=== PATIENT | male | born 1950 | race Caucasian/White ===

== ENCOUNTER 2017-07-17 15:17 | Inpatient (IN) | payer OTHER, MEDICAID ==
[2017-07-17 16:10] LABS: ADD MAN DIFF? NO
[2017-07-17 16:13] LABS: BASOPHILS % 0.2 % (0.0-2.0); EOSINOPHILS % 0.2 % (0.0-7.0); HEMATOCRIT 42.2 % (42.0-52.0); HEMOGLOBIN 14.6 g/dl (14.0-18.0); LYMPHOCYTES # 2.8 10^3/ul (0.8-2.9); LYMPHOCYTES % 21.5 % (15.0-51.0); MEAN CORPUSCULAR HEMOGLOBIN 29.7 pg (29.0-33.0); MEAN CORPUSCULAR HGB CONC 34.6 g/dl (32.0-37.0); MEAN CORPUSCULAR VOLUME 85.8 fl (82.0-101.0); MEAN PLATELET VOLUME 10.8 fl (7.4-10.4); MONOCYTE # 1.3 10^3/ul (0.3-0.9); MONOCYTES % 10.1 % (0.0-11.0); NEUTROPHILS % 67.8 % (39.0-77.0); PLATELET COUNT 246 10^3/UL (140-415); RED BLOOD COUNT 4.92 10^6/ul (4.70-6.10); RED CELL DISTRIBUTION WIDTH 12.8 % (11.5-14.5)
[2017-07-17 16:13] LABS: WHITE BLOOD COUNT 13.2 10^3/ul (4.8-10.8)
[2017-07-17 16:36] LABS: ANION GAP 13 (8-16); BLOOD UREA NITROGEN 18 mg/dl (7-20); CALCIUM 9.4 mg/dl (8.4-10.2); CARBON DIOXIDE 25 mmol/L (21-31); CHLORIDE 103 mmol/L (97-110); CREATININE 0.99 mg/dl (0.61-1.24); GLUCOSE 256 mg/dl (70-220); SODIUM 137 mmol/L (135-144)
[2017-07-17] MEDS ORDERED: FENTAnyl 50 MCG/ML VIAL (17:31)
[2017-07-17] MEDS ORDERED: MIDAZOLAM 1 MG/ML 2 ML INJ (17:31)
[2017-07-17] MEDS ORDERED: IODIXANOL LOCM 100 ML BTL ×2 (17:32→20:06)
[2017-07-17] MEDS ORDERED: LIDOCAINE 1% (MDV) 20 ML INJ (17:32)
[2017-07-17] MEDS ORDERED: NITROGLYCERIN (IC) 100 MCG/ML INJ (17:32)
[2017-07-17] MEDS: SOD CHLORIDE 0.9% 1,000 ML IV ×2 (17:47→22:39)
[2017-07-17] MEDS: ASPIRIN 81 MG TAB PO (17:53)
[2017-07-17] MEDS: HEPARIN 1000 UNITS/ML 10 ML INJ IV (17:53)
[2017-07-17] MEDS ORDERED: TICAGRELOR 90 MG TABLET (19:13)
[2017-07-17] MEDS ORDERED: VERAPAMIL 5 MG INJ (19:37)
[2017-07-17] MEDS ORDERED: BIVALIRUDIN 250MG /NS 50 ML 100 ML IVPB (19:55)
[2017-07-17] MEDS ORDERED: IOHEXOL 350MG/ML 50 ML BTL (20:06)
[2017-07-17] MEDS ORDERED: ONDANSETRON 4 MG INJ IV (20:30)
[2017-07-17] MEDS: BIVALIRUDIN 250 MG in SOD CHLORIDE 0.9% 500 ML IV (20:30)
[2017-07-17] MEDS ORDERED: ACETAMINOPHEN 325 MG TAB PO (20:30)
[2017-07-17] MEDS ORDERED: OXYCODONE/ACETAMINOPHEN (5/325) TAB PO ×2 (20:30)
[2017-07-17] MEDS: TICAGRELOR 90 MG TABLET PO ×3 (21:00→23:35)
[2017-07-17] MEDS: HYPOGLYCEMIA PROTOCOL when Glucose is <70 mg/dL or symptomatic <90 mg/dL. XX (21:00)
[2017-07-17] MEDS: Discontinue current oral sulfonylureas (glyburide, glipizide, and/or glimepiride) prior to XX (21:00)
[2017-07-17] MEDS: INSULIN ASPART [NOVOLOG] 3 ML PEN SC (21:00)
[2017-07-17] MEDS ORDERED: DEXTROSE 50% 50 ML SYRINGE IV ×2 (21:30)
[2017-07-17] MEDS ORDERED: GLUCOSE GEL 15 GRAM TUBE PO ×2 (21:30)
[2017-07-17] MEDS ORDERED: GLUCAGON 1 MG INJ IM (21:30)
[2017-07-17] MEDS ORDERED: GLUCOSE GEL 15 GRAM TUBE BUCCAL (21:30)
[2017-07-17 22:24] LABS: CREATINE KINASE 296 IU/L (23-200)
[2017-07-17] MEDS: morphine 2 MG INJ IV (22:25)
[2017-07-17] MEDS: LEVALBUTEROL (NEB) 0.31 MG/3 ML AMP HHN (22:30)
[2017-07-17 22:37] LABS: CK INDEX 2.7
[2017-07-17 22:42] LABS: CK-MB 7.98 ng/ml (0.0-2.4)
[2017-07-17] MEDS ORDERED: morphine 2 MG INJ IV (23:00)
[2017-07-17] MEDS: LORAZEPAM 2 MG INJ IV (23:01)
[2017-07-17 23:08] LABS: HEMOGLOBIN A1C 10.2 % (0-5.9)
[2017-07-17] MEDS: ATORVASTATIN 80 MG TAB PO (23:22)
[2017-07-17] MEDS: FAMOTIDINE 20 MG TAB PO (23:22)
[2017-07-17] MEDS: DOCUSATE SODIUM 100 MG CAP PO (23:23)
[2017-07-18] MEDS ORDERED: ATROPINE 1 MG/10 ML SYRINGE (00:41)
[2017-07-18 01:14] LABS: AADO2 Arterial 34.6 mmHg (7.0-24.0); Arterial Base Excess -1.1 mmol/L (-3.0-3); Arterial Blood Gas Oxygen Sat 95.3 mmHG (95.0-98.0); Arterial COHb 0.9 % (0.0-3.0); Arterial Fraction of Oxyhgb 94.2 % (93.0-99.0); Arterial HCO3 21.7 mmol/L (22.0-26.0); Arterial MetHb 0.3 % (0.0-1.5); Arterial Total Hemglobin 13.9 g/dl (12.0-18.0); Blood Gas IEPAP 15/5
[2017-07-18 01:31] LABS: MODE ROOM AIR; Site A-Line
[2017-07-18] MEDS: ACCU-CHEK XX (01:45)
[2017-07-18 05:48] LABS: ADD MAN DIFF? NO
[2017-07-18 05:57] LABS: WHITE BLOOD COUNT 13.2 10^3/ul (4.8-10.8)
[2017-07-18 05:57] LABS: BASOPHILS % 0.2 % (0.0-2.0); EOSINOPHILS % 0.2 % (0.0-7.0); HEMATOCRIT 38.8 % (42.0-52.0); HEMOGLOBIN 13.1 g/dl (14.0-18.0); LYMPHOCYTES # 2.1 10^3/ul (0.8-2.9); LYMPHOCYTES % 15.6 % (15.0-51.0); MEAN CORPUSCULAR HEMOGLOBIN 29.6 pg (29.0-33.0); MEAN CORPUSCULAR HGB CONC 33.8 g/dl (32.0-37.0); MEAN CORPUSCULAR VOLUME 87.6 fl (82.0-101.0); MEAN PLATELET VOLUME 10.3 fl (7.4-10.4); MONOCYTE # 1.3 10^3/ul (0.3-0.9); MONOCYTES % 9.7 % (0.0-11.0); NEUTROPHIL # 9.8 10^3/ul (1.6-7.5); NEUTROPHILS % 74.1 % (39.0-77.0); PLATELET COUNT 238 10^3/UL (140-415); RED BLOOD COUNT 4.43 10^6/ul (4.70-6.10); RED CELL DISTRIBUTION WIDTH 12.9 % (11.5-14.5)
[2017-07-18 06:13] LABS: ALANINE AMINOTRANSFERASE 36 IU/L (13-69); ALBUMIN 3.5 g/dl (3.3-4.9); ALBUMIN/GLOBULIN RATIO 1.06; ALKALINE PHOSPHATASE 79 IU/L (42-121); ANION GAP 8 (8-16); ASPARTATE AMINO TRANSFERASE 56 IU/L (15-46); BILIRUBIN,INDIRECT 1.1 mg/dl (0-1.1); BILIRUBIN,TOTAL 1.1 mg/dl (0.2-1.3); BLOOD UREA NITROGEN 16 mg/dl (7-20); CALCIUM 8.7 mg/dl (8.4-10.2); CARBON DIOXIDE 27 mmol/L (21-31); CHLORIDE 107 mmol/L (97-110); CHOL/HDL RATIO 3.3 RATIO; CHOLESTEROL 151 mg/dl (100-200); GLUCOSE 122 mg/dl (70-220); HDL CHOLESTEROL 45 mg/dl (30-78); LDL CHOLESTEROL,CALCULATED 89 mg/dl; MAGNESIUM 1.9 mg/dl (1.7-2.5); POTASSIUM 3.8 mmol/L (3.5-5.1); SODIUM 138 mmol/L (135-144); TOTAL PROTEIN 6.8 g/dl (6.1-8.1); TRIGLYCERIDES 84 mg/dl (0-149)
[2017-07-18 06:17] LABS: CREATINE KINASE 257 IU/L (23-200)
[2017-07-18 06:22] LABS: B-TYPE NATRIURETIC PEPTIDE 853 PG/ML (0-125)
[2017-07-18 06:26] LABS: CK INDEX 2.7
[2017-07-18 06:27] LABS: CK-MB 7.04 ng/ml (0.0-2.4)
[2017-07-18 06:30] LABS: FREE T4 (FREE THYROXINE) 2.03 ng/dl (0.78-2.44)
[2017-07-18] MEDS: PANTOPRAZOLE (EC) 40 MG TAB PO (06:30)
[2017-07-18 06:51] LABS: THYROID STIMULATING HORMONE < 0.015 MIU/L (0.465-4.680)
[2017-07-18 07:54] LABS: CREATINE KINASE 255 IU/L (23-200)
[2017-07-18 08:05] LABS: CK INDEX 2.6
[2017-07-18 08:08] LABS: CK-MB 6.75 ng/ml (0.0-2.4)
[2017-07-18] MEDS: LISINOPRIL 5 MG TAB PO (09:00)
[2017-07-18] MEDS: FAMOTIDINE 20 MG TAB PO ×2 (09:04→21:11)
[2017-07-18] MEDS: DOCUSATE SODIUM 100 MG CAP PO ×2 (09:04→21:11)
[2017-07-18] MEDS: ASPIRIN (EC) 81 MG TAB PO (09:04)
[2017-07-18] MEDS: TICAGRELOR 90 MG TABLET PO ×2 (09:05→21:11)
[2017-07-18] MEDS: INSULIN ASPART [NOVOLOG] 3 ML PEN SC ×4 (09:06→21:00)
[2017-07-18] MEDS: ATORVASTATIN 80 MG TAB PO (21:11)
[2017-07-19] MEDS: ACCU-CHEK XX (02:00)
[2017-07-19 05:21] LABS: ADD MAN DIFF? NO
[2017-07-19] MEDS: PANTOPRAZOLE (EC) 40 MG TAB PO (05:45)
[2017-07-19 05:46] LABS: BASOPHILS % 0.3 % (0.0-2.0); EOSINOPHILS # 0.1 10^3/ul (0.0-0.5); EOSINOPHILS % 0.5 % (0.0-7.0); HEMATOCRIT 37.5 % (42.0-52.0); HEMOGLOBIN 12.8 g/dl (14.0-18.0); LYMPHOCYTES # 2.1 10^3/ul (0.8-2.9); MEAN CORPUSCULAR HEMOGLOBIN 29.9 pg (29.0-33.0); MEAN CORPUSCULAR HGB CONC 34.1 g/dl (32.0-37.0); MEAN CORPUSCULAR VOLUME 87.6 fl (82.0-101.0); MEAN PLATELET VOLUME 10.4 fl (7.4-10.4); MONOCYTE # 1.1 10^3/ul (0.3-0.9); MONOCYTES % 10.1 % (0.0-11.0); NEUTROPHIL # 7.2 10^3/ul (1.6-7.5); NEUTROPHILS % 68.8 % (39.0-77.0); PLATELET COUNT 221 10^3/UL (140-415); RED BLOOD COUNT 4.28 10^6/ul (4.70-6.10); RED CELL DISTRIBUTION WIDTH 12.7 % (11.5-14.5)
[2017-07-19 05:46] LABS: WHITE BLOOD COUNT 10.5 10^3/ul (4.8-10.8)
[2017-07-19 05:51] LABS: CREATINE KINASE 129 IU/L (23-200)
[2017-07-19 05:55] LABS: PHOSPHORUS 3.7 mg/dl (2.5-4.9)
[2017-07-19 05:58] LABS: ALANINE AMINOTRANSFERASE 31 IU/L (13-69); ALBUMIN 3.5 g/dl (3.3-4.9); ALBUMIN/GLOBULIN RATIO 1.02; ALKALINE PHOSPHATASE 80 IU/L (42-121); ANION GAP 10 (8-16); ASPARTATE AMINO TRANSFERASE 32 IU/L (15-46); BILIRUBIN,INDIRECT 0.8 mg/dl (0-1.1); BILIRUBIN,TOTAL 0.8 mg/dl (0.2-1.3); BLOOD UREA NITROGEN 16 mg/dl (7-20); CALCIUM 8.8 mg/dl (8.4-10.2); CARBON DIOXIDE 26 mmol/L (21-31); CHLORIDE 106 mmol/L (97-110); CREATININE 1.06 mg/dl (0.61-1.24); GLUCOSE 135 mg/dl (70-220); POTASSIUM 4.4 mmol/L (3.5-5.1); SODIUM 138 mmol/L (135-144); TOTAL PROTEIN 6.9 g/dl (6.1-8.1)
[2017-07-19 06:05] LABS: CK-MB 2.63 ng/ml (0.0-2.4)
[2017-07-19] MEDS: INSULIN ASPART [NOVOLOG] 3 ML PEN SC ×5 (08:25→20:59)
[2017-07-19 09:45] LABS: FREE T4 (FREE THYROXINE) 1.73 ng/dl (0.78-2.44)
[2017-07-19] MEDS: FAMOTIDINE 20 MG TAB PO ×2 (09:56→20:55)
[2017-07-19] MEDS: ASPIRIN (EC) 81 MG TAB PO (09:56)
[2017-07-19] MEDS: DOCUSATE SODIUM 100 MG CAP PO ×2 (09:57→20:53)
[2017-07-19] MEDS: TICAGRELOR 90 MG TABLET PO ×2 (10:01→20:57)
[2017-07-19 10:04] LABS: THYROID STIMULATING HORMONE < 0.015 MIU/L (0.465-4.680)
[2017-07-19] MEDS: LISINOPRIL 5 MG TAB PO (10:04)
[2017-07-19] MEDS: ATORVASTATIN 80 MG TAB PO (20:52)
[2017-07-19] MEDS: BENZONATATE 100 MG CAP PO (20:54)
[2017-07-20] MEDS: ACCU-CHEK XX (03:35)
[2017-07-20] MEDS: PANTOPRAZOLE (EC) 40 MG TAB PO (03:35)
[2017-07-20] MEDS ORDERED: MIDAZOLAM 1 MG/ML 2 ML INJ (07:56)
[2017-07-20] MEDS ORDERED: IOHEXOL 350MG/ML 50 ML BTL (07:56)
[2017-07-20] MEDS ORDERED: IODIXANOL LOCM 100 ML BTL (07:56)
[2017-07-20] MEDS ORDERED: BIVALIRUDIN 250MG /NS 50 ML 50 ML IVPB (07:56)
[2017-07-20] MEDS ORDERED: FENTAnyl 50 MCG/ML VIAL (07:56)
[2017-07-20] MEDS: INSULIN ASPART [NOVOLOG] 3 ML PEN SC ×4 (08:00→20:22)
[2017-07-20 08:15] LABS: ADD MAN DIFF? NO
[2017-07-20 08:20] LABS: BASOPHILS % 0.3 % (0.0-2.0); EOSINOPHILS # 0.1 10^3/ul (0.0-0.5); EOSINOPHILS % 0.7 % (0.0-7.0); HEMATOCRIT 38.7 % (42.0-52.0); HEMOGLOBIN 13.2 g/dl (14.0-18.0); LYMPHOCYTES # 1.9 10^3/ul (0.8-2.9); LYMPHOCYTES % 20.4 % (15.0-51.0); MEAN CORPUSCULAR HEMOGLOBIN 29.9 pg (29.0-33.0); MEAN CORPUSCULAR HGB CONC 34.1 g/dl (32.0-37.0); MEAN CORPUSCULAR VOLUME 87.6 fl (82.0-101.0); MEAN PLATELET VOLUME 10.5 fl (7.4-10.4); MONOCYTE # 0.9 10^3/ul (0.3-0.9); MONOCYTES % 9.6 % (0.0-11.0); NEUTROPHIL # 6.5 10^3/ul (1.6-7.5); NEUTROPHILS % 68.7 % (39.0-77.0); PLATELET COUNT 266 10^3/UL (140-415); RED BLOOD COUNT 4.42 10^6/ul (4.70-6.10); RED CELL DISTRIBUTION WIDTH 12.4 % (11.5-14.5)
[2017-07-20 08:20] LABS: WHITE BLOOD COUNT 9.4 10^3/ul (4.8-10.8)
[2017-07-20] MEDS ORDERED: NITROGLYCERIN (IC) 100 MCG/ML INJ (08:27)
[2017-07-20 08:39] LABS: INR 1.06; PROTIME 13.9 Sec (11.9-14.9); PT RATIO 1.1
[2017-07-20] MEDS ORDERED: ASPIRIN 325 MG TAB (08:42)
[2017-07-20] MEDS ORDERED: TICAGRELOR 90 MG TABLET (08:42)
[2017-07-20 08:45] LABS: CREATINE KINASE 93 IU/L (23-200)
[2017-07-20 08:46] LABS: MAGNESIUM 1.9 mg/dl (1.7-2.5)
[2017-07-20 08:46] LABS: PHOSPHORUS 4.1 mg/dl (2.5-4.9)
[2017-07-20 08:53] LABS: ALANINE AMINOTRANSFERASE 32 IU/L (13-69); ALBUMIN 3.8 g/dl (3.3-4.9); ALBUMIN/GLOBULIN RATIO 1.02; ALKALINE PHOSPHATASE 95 IU/L (42-121); ANION GAP 11 (8-16); ASPARTATE AMINO TRANSFERASE 24 IU/L (15-46); BILIRUBIN,INDIRECT 0.8 mg/dl (0-1.1); BILIRUBIN,TOTAL 0.8 mg/dl (0.2-1.3); BLOOD UREA NITROGEN 18 mg/dl (7-20); CALCIUM 8.9 mg/dl (8.4-10.2); CARBON DIOXIDE 27 mmol/L (21-31); CHLORIDE 104 mmol/L (97-110); CREATININE 1.05 mg/dl (0.61-1.24); GLUCOSE 164 mg/dl (70-220); POTASSIUM 3.9 mmol/L (3.5-5.1); SODIUM 138 mmol/L (135-144); TOTAL PROTEIN 7.5 g/dl (6.1-8.1)
[2017-07-20 08:56] LABS: CK INDEX 1.2
[2017-07-20 08:57] LABS: CK-MB 1.11 ng/ml (0.0-2.4)
[2017-07-20] MEDS: TICAGRELOR 90 MG TABLET PO ×2 (09:00→20:22)
[2017-07-20] MEDS: BENZONATATE 100 MG CAP PO ×3 (09:00→20:16)
[2017-07-20] MEDS: ASPIRIN (EC) 81 MG TAB PO (09:00)
[2017-07-20] MEDS: SOD CHLORIDE 0.9% 1,000 ML IV (09:38)
[2017-07-20] MEDS: DOCUSATE SODIUM 100 MG CAP PO ×2 (09:46→20:22)
[2017-07-20] MEDS: FAMOTIDINE 20 MG TAB PO ×2 (09:47→20:15)
[2017-07-20] MEDS: LISINOPRIL 5 MG TAB PO (09:47)
[2017-07-20] MEDS ORDERED: morphine LIQ (10 MG/5 ML) CUP PO (15:00)
[2017-07-20] MEDS: LINAGLIPTIN 5 MG TABLET PO (16:24)
[2017-07-20] MEDS ORDERED: metFORMIN 500 MG TAB PO (17:35)
[2017-07-20] MEDS: ATORVASTATIN 80 MG TAB PO (20:16)
[2017-07-21] MEDS: ACCU-CHEK XX (02:00)
[2017-07-21] MEDS: PANTOPRAZOLE (EC) 40 MG TAB PO (06:09)
[2017-07-21 06:50] LABS: ADD MAN DIFF? NO
[2017-07-21 07:07] LABS: BASOPHILS % 0.3 % (0.0-2.0); EOSINOPHILS # 0.1 10^3/ul (0.0-0.5); EOSINOPHILS % 0.8 % (0.0-7.0); HEMATOCRIT 37.9 % (42.0-52.0); HEMOGLOBIN 12.8 g/dl (14.0-18.0); LYMPHOCYTES % 20.4 % (15.0-51.0); MEAN CORPUSCULAR HEMOGLOBIN 29.6 pg (29.0-33.0); MEAN CORPUSCULAR HGB CONC 33.8 g/dl (32.0-37.0); MEAN CORPUSCULAR VOLUME 87.5 fl (82.0-101.0); MONOCYTE # 0.8 10^3/ul (0.3-0.9); MONOCYTES % 8.4 % (0.0-11.0); NEUTROPHIL # 6.8 10^3/ul (1.6-7.5); NEUTROPHILS % 69.7 % (39.0-77.0); PLATELET COUNT 300 10^3/UL (140-415); RED BLOOD COUNT 4.33 10^6/ul (4.70-6.10); RED CELL DISTRIBUTION WIDTH 12.1 % (11.5-14.5)
[2017-07-21 07:07] LABS: WHITE BLOOD COUNT 9.8 10^3/ul (4.8-10.8)
[2017-07-21 07:36] LABS: MAGNESIUM 1.9 mg/dl (1.7-2.5)
[2017-07-21 07:49] LABS: ANION GAP 12 (8-16); BLOOD UREA NITROGEN 15 mg/dl (7-20); CALCIUM 8.7 mg/dl (8.4-10.2); CARBON DIOXIDE 26 mmol/L (21-31); CHLORIDE 104 mmol/L (97-110); CREATINE KINASE 95 IU/L (23-200); CREATININE 1.01 mg/dl (0.61-1.24); GLUCOSE 159 mg/dl (70-220); POTASSIUM 3.9 mmol/L (3.5-5.1); SODIUM 138 mmol/L (135-144)
[2017-07-21 07:53] LABS: CK INDEX 0.9
[2017-07-21] MEDS: INSULIN ASPART [NOVOLOG] 3 ML PEN SC ×3 (07:55→13:46)
[2017-07-21 08:07] LABS: CK-MB 0.85 ng/ml (0.0-2.4)
[2017-07-21] MEDS: DOCUSATE SODIUM 100 MG CAP PO (08:26)
[2017-07-21] MEDS: ASPIRIN (EC) 81 MG TAB PO (08:27)
[2017-07-21] MEDS: LINAGLIPTIN 5 MG TABLET PO (08:27)
[2017-07-21] MEDS: FAMOTIDINE 20 MG TAB PO (08:27)
[2017-07-21] MEDS: LISINOPRIL 5 MG TAB PO (08:27)
[2017-07-21] MEDS: BENZONATATE 100 MG CAP PO ×2 (08:28→12:49)
[2017-07-21] MEDS: TICAGRELOR 90 MG TABLET PO (08:29)
[2017-07-22] MEDS ORDERED: metFORMIN 500 MG TAB PO (17:35)
[2017-07-24] MEDS ORDERED: LEVOTHYROXINE 150 MCG TAB PO (06:00)
== END 2017-07-21 17:56 | disposition home or self-care (01) | DRG 247 ==
LOC: TEL 07-21 04:25 → ICU 07-20 09:23 → E/R 15:17 → ICU 18:24 → TEL 07-18 20:00 → MS4 07-19 17:53 → ICU 07-18 20:05
PROC: 027034Z Dilation of Coronary Artery, One Artery with Drug-eluting Intraluminal Device, Percutaneous Approach (ICD-10-PCS; principal; 2017-07-17 18:49)
PROC: 02703ZZ Dilation of Coronary Artery, One Artery, Percutaneous Approach (ICD-10-PCS; 2017-07-17 18:49)
PROC: 027034Z Dilation of Coronary Artery, One Artery with Drug-eluting Intraluminal Device, Percutaneous Approach (ICD-10-PCS; 2017-07-17 18:49)
PROC: 02703ZZ Dilation of Coronary Artery, One Artery, Percutaneous Approach (ICD-10-PCS; 2017-07-17 18:49)
PROC: 4A023N7 Measurement of Cardiac Sampling and Pressure, Left Heart, Percutaneous Approach (ICD-10-PCS; 2017-07-17 18:49)
PROC: B211YZZ Fluoroscopy of Multiple Coronary Arteries using Other Contrast (ICD-10-PCS; 2017-07-17 18:49)
PROC: B211YZZ Fluoroscopy of Multiple Coronary Arteries using Other Contrast (ICD-10-PCS; 2017-07-17 18:49)
DX: I21.4 Non-ST elevation (NSTEMI) myocardial infarction (principal); E11.9 Type 2 diabetes mellitus without complications; I10 Essential (primary) hypertension; I25.10 Atherosclerotic heart disease of native coronary artery without angina pectoris; E78.5 Hyperlipidemia, unspecified; E03.9 Hypothyroidism, unspecified; D72.829 Elevated white blood cell count, unspecified; Z79.84 Long term (current) use of oral hypoglycemic drugs; Z79.82 Long term (current) use of aspirin
CPT/HCPCS: 36415; 36600; 71045; 73000; 80048; 80053; 80061; 82550; 82553; 82803; 82962; 83036; 83735; 83880; 84100; 84439; 84443; 84484; 85025; 85610; 87081; 93005; 93306; 93458; 94664; 96374; 96375; 99291-25

== ENCOUNTER 2017-07-31 04:19 | Inpatient (IN) | payer OTHER, MEDICAID ==
[2017-07-31] MEDS: ASPIRIN 325 MG TAB PO (04:52)
[2017-07-31 05:02] LABS: ADD MAN DIFF? NO
[2017-07-31] MEDS: SOD CHLORIDE 0.9% 1,000 ML IV ×2 (05:22→10:49)
[2017-07-31] MEDS: ONDANSETRON 4 MG INJ IV ×2 (05:23)
[2017-07-31 05:25] LABS: ANION GAP 17 (8-16); BLOOD UREA NITROGEN 18 mg/dl (7-20); CALCIUM 9.8 mg/dl (8.4-10.2); CARBON DIOXIDE 22 mmol/L (21-31); CHLORIDE 108 mmol/L (97-110); CREATININE 0.98 mg/dl (0.61-1.24); GLUCOSE 100 mg/dl (70-220); POTASSIUM 3.4 mmol/L (3.5-5.1); SODIUM 144 mmol/L (135-144)
[2017-07-31 05:32] LABS: BASOPHIL # 0.1 10^3/ul (0.0-0.1); BASOPHILS % 0.4 % (0.0-2.0); EOSINOPHILS # 0.2 10^3/ul (0.0-0.5); EOSINOPHILS % 1.4 % (0.0-7.0); HEMATOCRIT 41.9 % (42.0-52.0); HEMOGLOBIN 14.1 g/dl (14.0-18.0); LYMPHOCYTES # 3.5 10^3/ul (0.8-2.9); LYMPHOCYTES % 24.7 % (15.0-51.0); MEAN CORPUSCULAR HEMOGLOBIN 29.4 pg (29.0-33.0); MEAN CORPUSCULAR HGB CONC 33.7 g/dl (32.0-37.0); MEAN CORPUSCULAR VOLUME 87.5 fl (82.0-101.0); MEAN PLATELET VOLUME 9.9 fl (7.4-10.4); MONOCYTES % 7.3 % (0.0-11.0); NEUTROPHIL # 9.3 10^3/ul (1.6-7.5); NEUTROPHILS % 65.9 % (39.0-77.0); POSITIVE DIFF @See below; RED BLOOD COUNT 4.79 10^6/ul (4.70-6.10); RED CELL DISTRIBUTION WIDTH 12.3 % (11.5-14.5)
[2017-07-31] MEDS: LIDOCAINE/MYLANTA 40 ML BTL PO (05:32)
[2017-07-31 05:33] LABS: B-TYPE NATRIURETIC PEPTIDE 385 PG/ML (0-125)
[2017-07-31] MEDS: NITROGLYCERIN (SL) 0.4 MG TAB SL (05:35)
[2017-07-31] MEDS: morphine 4 MG/ML VIAL IV (05:36)
[2017-07-31 05:39] LABS: PLATELET COUNT 448 10^3/UL (140-415)
[2017-07-31 05:41] LABS: TROPONIN-I 0.199 ng/ml (0.000-0.120)
[2017-07-31] MEDS: POTASSIUM CHLORIDE (SR) 20 MEQ TAB PO (05:58)
[2017-07-31] MEDS: HYDROmorphONE 0.5 MG/0.5 ML SYG IV (07:01)
[2017-07-31 07:57] LABS: ALANINE AMINOTRANSFERASE 32 IU/L (13-69); ALBUMIN 4.3 g/dl (3.3-4.9); ALKALINE PHOSPHATASE 110 IU/L (42-121); ASPARTATE AMINO TRANSFERASE 26 IU/L (15-46); BILIRUBIN,INDIRECT 0.3 mg/dl (0-1.1); BILIRUBIN,TOTAL 0.3 mg/dl (0.2-1.3); LIPASE 118 U/L (23-300); TOTAL PROTEIN 8.4 g/dl (6.1-8.1)
[2017-07-31] MEDS ORDERED: ONDANSETRON 4 MG INJ IV (10:00)
[2017-07-31] MEDS ORDERED: ACETAMINOPHEN 325 MG TAB PO (10:00)
[2017-07-31] MEDS ORDERED: NACL 0.9% 3 ML SYG IV (10:00)
[2017-07-31] MEDS: HYDROCODONE/APAP (5/325) TAB PO ×2 (10:41→18:46)
[2017-07-31 10:44] LABS: TROPONIN-I 0.765 ng/ml (0.000-0.120)
[2017-07-31] MEDS ORDERED: GLUCOSE GEL 15 GRAM TUBE PO ×2 (11:00)
[2017-07-31] MEDS ORDERED: INSULIN ASPART [NOVOLOG] 3 ML PEN SC (11:00)
[2017-07-31] MEDS ORDERED: GLUCAGON 1 MG INJ IM (11:00)
[2017-07-31] MEDS ORDERED: GLUCOSE GEL 15 GRAM TUBE BUCCAL (11:00)
[2017-07-31] MEDS ORDERED: DEXTROSE 50% 50 ML SYRINGE IV ×2 (11:00)
[2017-07-31 11:45] LABS: FREE T4 (FREE THYROXINE) 1.72 ng/dl (0.78-2.44)
[2017-07-31 11:52] LABS: CREATINE KINASE 323 IU/L (23-200)
[2017-07-31] MEDS ORDERED: HEPARIN 1000 UNITS/ML 10 ML INJ IV (12:00)
[2017-07-31 12:04] LABS: CK INDEX 5.8
[2017-07-31 12:06] LABS: INR 1.03; PROTIME 13.6 Sec (11.9-14.9); PT RATIO 1.1
[2017-07-31 12:13] LABS: HEMOGLOBIN A1C 9.4 % (0-5.9)
[2017-07-31 12:17] LABS: ADD MAN DIFF? NO
[2017-07-31 12:19] LABS: WHITE BLOOD COUNT 11.8 10^3/ul (4.8-10.8)
[2017-07-31 12:19] LABS: BASOPHILS % 0.3 % (0.0-2.0); EOSINOPHILS # 0.1 10^3/ul (0.0-0.5); EOSINOPHILS % 0.4 % (0.0-7.0); HEMATOCRIT 38.3 % (42.0-52.0); HEMOGLOBIN 12.8 g/dl (14.0-18.0); LYMPHOCYTES % 17.1 % (15.0-51.0); MEAN CORPUSCULAR HEMOGLOBIN 29.8 pg (29.0-33.0); MEAN CORPUSCULAR HGB CONC 33.4 g/dl (32.0-37.0); MEAN CORPUSCULAR VOLUME 89.1 fl (82.0-101.0); MEAN PLATELET VOLUME 9.2 fl (7.4-10.4); MONOCYTE # 0.6 10^3/ul (0.3-0.9); MONOCYTES % 5.2 % (0.0-11.0); NEUTROPHIL # 9.1 10^3/ul (1.6-7.5); NEUTROPHILS % 76.7 % (39.0-77.0); PLATELET COUNT 459 10^3/UL (140-415); RED CELL DISTRIBUTION WIDTH 12.5 % (11.5-14.5)
[2017-07-31] MEDS: HEPARIN 1000 UNITS/ML 10 ML INJ IV (12:49)
[2017-07-31] MEDS: HEPARIN 25000 UNITS/250 ML 250 ML IV (12:58)
[2017-07-31] MEDS: Insulin NOVOLOG SS MILD Algorithm (NPO/TPN/ENTERAL FEEDS) SC ×3 (13:00→20:56)
[2017-07-31 19:51] LABS: CREATINE KINASE 926 IU/L (23-200)
[2017-07-31 19:52] LABS: PROTIME 13.3 Sec (11.9-14.9)
[2017-07-31 19:53] LABS: PARTIAL THROMBOPLASTIN TIME 68.4 Sec (25.0-35.0)
[2017-07-31 20:02] LABS: CK INDEX 6.1
[2017-07-31] MEDS: ATORVASTATIN 80 MG TAB PO (20:52)
[2017-07-31] MEDS: TICAGRELOR 90 MG TABLET PO (20:54)
[2017-07-31] MEDS: INSULIN GLARGINE [LANtus] 3 ML PEN SC (20:55)
[2017-08-01] MEDS: Insulin NOVOLOG SS MILD Algorithm (NPO/TPN/ENTERAL FEEDS) SC ×2 (01:00→05:00)
[2017-08-01] MEDS: SOD CHLORIDE 0.9% 1,000 ML IV ×2 (01:01→12:03)
[2017-08-01] MEDS: HYDROCODONE/APAP (5/325) TAB PO ×2 (01:01→06:46)
[2017-08-01 06:40] LABS: ADD MAN DIFF? NO
[2017-08-01 06:43] LABS: BASOPHILS % 0.3 % (0.0-2.0); EOSINOPHILS # 0.1 10^3/ul (0.0-0.5); EOSINOPHILS % 0.7 % (0.0-7.0); HEMATOCRIT 38.9 % (42.0-52.0); HEMOGLOBIN 13.1 g/dl (14.0-18.0); LYMPHOCYTES # 1.9 10^3/ul (0.8-2.9); MEAN CORPUSCULAR HEMOGLOBIN 29.6 pg (29.0-33.0); MEAN CORPUSCULAR HGB CONC 33.7 g/dl (32.0-37.0); MEAN PLATELET VOLUME 9.3 fl (7.4-10.4); MONOCYTES % 7.6 % (0.0-11.0); NEUTROPHIL # 9.8 10^3/ul (1.6-7.5); PLATELET COUNT 447 10^3/UL (140-415); RED BLOOD COUNT 4.42 10^6/ul (4.70-6.10); RED CELL DISTRIBUTION WIDTH 12.7 % (11.5-14.5)
[2017-08-01 06:43] LABS: WHITE BLOOD COUNT 12.9 10^3/ul (4.8-10.8)
[2017-08-01] MEDS: LEVOTHYROXINE 150 MCG TAB PO (06:45)
[2017-08-01 07:06] LABS: ALANINE AMINOTRANSFERASE 52 IU/L (13-69); ALBUMIN 3.7 g/dl (3.3-4.9); ALBUMIN/GLOBULIN RATIO 1.05; ALKALINE PHOSPHATASE 108 IU/L (42-121); ANION GAP 13 (8-16); ASPARTATE AMINO TRANSFERASE 180 IU/L (15-46); BILIRUBIN,INDIRECT 0.6 mg/dl (0-1.1); BILIRUBIN,TOTAL 0.6 mg/dl (0.2-1.3); BLOOD UREA NITROGEN 10 mg/dl (7-20); CALCIUM 8.9 mg/dl (8.4-10.2); CARBON DIOXIDE 26 mmol/L (21-31); CHLORIDE 106 mmol/L (97-110); CHOL/HDL RATIO 2.4 RATIO; CHOLESTEROL 114 mg/dl (100-200); CREATININE 0.92 mg/dl (0.61-1.24); GLUCOSE 126 mg/dl (70-220); HDL CHOLESTEROL 46 mg/dl (30-78); LDL CHOLESTEROL,CALCULATED 52 mg/dl; POTASSIUM 4.3 mmol/L (3.5-5.1); SODIUM 141 mmol/L (135-144); TOTAL PROTEIN 7.2 g/dl (6.1-8.1); TRIGLYCERIDES 80 mg/dl (0-149)
[2017-08-01 07:06] LABS: PHOSPHORUS 3.7 mg/dl (2.5-4.9)
[2017-08-01] MEDS ORDERED: IODIXANOL LOCM 50 ML BTL (08:46)
[2017-08-01] MEDS ORDERED: IODIXANOL LOCM 100 ML BTL (08:46)
[2017-08-01] MEDS ORDERED: NITROGLYCERIN (IC) 100 MCG/ML INJ (08:46)
[2017-08-01] MEDS ORDERED: HEPARIN 1000 UNITS/NS (A-LINE) 1,000 ML (08:46)
[2017-08-01] MEDS ORDERED: LIDOCAINE 1% (MDV) 20 ML INJ (08:46)
[2017-08-01] MEDS ORDERED: MIDAZOLAM 1 MG/ML 2 ML INJ (08:55)
[2017-08-01] MEDS ORDERED: FENTAnyl 50 MCG/ML VIAL (08:56)
[2017-08-01] MEDS: LISINOPRIL 5 MG TAB PO (09:00)
[2017-08-01] MEDS: ASPIRIN (EC) 81 MG TAB PO (09:00)
[2017-08-01] MEDS ORDERED: ENOXAPARIN 40 MG/0.4 ML SYG SC (09:00)
[2017-08-01] MEDS: LINAGLIPTIN 5 MG TABLET PO (09:00)
[2017-08-01] MEDS: TICAGRELOR 90 MG TABLET PO ×2 (09:00→21:15)
[2017-08-01] MEDS ORDERED: PHENYLephrine (100 MCG/ML) 5ML SYG (09:32)
[2017-08-01] MEDS ORDERED: TICAGRELOR 90 MG TABLET (10:41)
[2017-08-01] MEDS ORDERED: ASPIRIN 81 MG TAB (10:42)
[2017-08-01] MEDS ORDERED: morphine 2 MG INJ IV (11:30)
[2017-08-01] MEDS ORDERED: INSULIN ASPART [NOVOLOG] 3 ML PEN SC (17:25)
[2017-08-01] MEDS ORDERED: BIVALIRUDIN 250MG /NS 50 ML 100 ML IVPB (17:34)
[2017-08-01] MEDS: Insulin NOVOLOG SS MILD Algorithm (SS with meals and bedtime) SC ×2 (18:05→21:00)
[2017-08-01] MEDS: INSULIN ASPART [NOVOLOG] 3 ML PEN SC (18:06)
[2017-08-01] MEDS: ATORVASTATIN 80 MG TAB PO (21:12)
[2017-08-01] MEDS: DOCUSATE SODIUM 100 MG CAP PO (21:12)
[2017-08-01] MEDS: FAMOTIDINE 20 MG TAB PO (21:13)
[2017-08-01] MEDS: INSULIN GLARGINE [LANtus] 3 ML PEN SC (21:15)
[2017-08-02] MEDS: ACCUCHECK AT 2AM (Patients on SS coverage) XX (02:35)
[2017-08-02 05:44] LABS: ADD MAN DIFF? NO
[2017-08-02 05:48] LABS: BASOPHILS % 0.4 % (0.0-2.0); EOSINOPHILS # 0.1 10^3/ul (0.0-0.5); EOSINOPHILS % 0.6 % (0.0-7.0); HEMATOCRIT 38.6 % (42.0-52.0); HEMOGLOBIN 13.3 g/dl (14.0-18.0); LYMPHOCYTES # 1.9 10^3/ul (0.8-2.9); LYMPHOCYTES % 17.1 % (15.0-51.0); MEAN CORPUSCULAR HEMOGLOBIN 29.9 pg (29.0-33.0); MEAN CORPUSCULAR HGB CONC 34.5 g/dl (32.0-37.0); MEAN CORPUSCULAR VOLUME 86.7 fl (82.0-101.0); MEAN PLATELET VOLUME 9.6 fl (7.4-10.4); MONOCYTE # 1.1 10^3/ul (0.3-0.9); MONOCYTES % 10.1 % (0.0-11.0); NEUTROPHILS % 71.5 % (39.0-77.0); PLATELET COUNT 423 10^3/UL (140-415); RED BLOOD COUNT 4.45 10^6/ul (4.70-6.10); RED CELL DISTRIBUTION WIDTH 12.5 % (11.5-14.5)
[2017-08-02 05:48] LABS: WHITE BLOOD COUNT 11.2 10^3/ul (4.8-10.8)
[2017-08-02 06:18] LABS: PHOSPHORUS 4.3 mg/dl (2.5-4.9)
[2017-08-02 06:33] LABS: CREATINE KINASE 434 IU/L (23-200)
[2017-08-02] MEDS: LEVOTHYROXINE 150 MCG TAB PO (06:35)
[2017-08-02 06:45] LABS: CK INDEX 2.9
[2017-08-02 06:56] LABS: ALANINE AMINOTRANSFERASE 47 IU/L (13-69); ALBUMIN 3.6 g/dl (3.3-4.9); ALKALINE PHOSPHATASE 99 IU/L (42-121); ANION GAP 13 (8-16); ASPARTATE AMINO TRANSFERASE 95 IU/L (15-46); BILIRUBIN,INDIRECT 0.7 mg/dl (0-1.1); BILIRUBIN,TOTAL 0.7 mg/dl (0.2-1.3); BLOOD UREA NITROGEN 9 mg/dl (7-20); CARBON DIOXIDE 25 mmol/L (21-31); CHLORIDE 108 mmol/L (97-110); CREATININE 0.97 mg/dl (0.61-1.24); GLUCOSE 81 mg/dl (70-220); POTASSIUM 3.8 mmol/L (3.5-5.1); SODIUM 142 mmol/L (135-144); TOTAL PROTEIN 7.2 g/dl (6.1-8.1)
[2017-08-02] MEDS: Insulin NOVOLOG SS MILD Algorithm (SS with meals and bedtime) SC ×4 (07:05→21:00)
[2017-08-02] MEDS: INSULIN ASPART [NOVOLOG] 3 ML PEN SC ×3 (07:58→17:00)
[2017-08-02] MEDS: LINAGLIPTIN 5 MG TABLET PO (08:01)
[2017-08-02] MEDS: ASPIRIN (EC) 81 MG TAB PO (08:01)
[2017-08-02] MEDS: LISINOPRIL 5 MG TAB PO (08:01)
[2017-08-02] MEDS: FAMOTIDINE 20 MG TAB PO ×2 (08:01→21:08)
[2017-08-02] MEDS: DOCUSATE SODIUM 100 MG CAP PO ×2 (08:01→21:08)
[2017-08-02] MEDS: TICAGRELOR 90 MG TABLET PO ×2 (08:07→21:10)
[2017-08-02] MEDS ORDERED: morphine LIQ (10 MG/5 ML) CUP PO (14:00)
[2017-08-02] MEDS: INSULIN GLARGINE [LANtus] 3 ML PEN SC (21:06)
[2017-08-02] MEDS: ATORVASTATIN 80 MG TAB PO (21:08)
[2017-08-03] MEDS: ACCUCHECK AT 2AM (Patients on SS coverage) XX (03:00)
[2017-08-03] MEDS: LEVOTHYROXINE 150 MCG TAB PO (05:58)
[2017-08-03] MEDS: Insulin NOVOLOG SS MILD Algorithm (SS with meals and bedtime) SC ×4 (07:30→20:40)
[2017-08-03 07:59] LABS: ADD MAN DIFF? NO
[2017-08-03 08:16] LABS: BASOPHILS % 0.4 % (0.0-2.0); EOSINOPHILS # 0.1 10^3/ul (0.0-0.5); EOSINOPHILS % 0.9 % (0.0-7.0); HEMATOCRIT 37.4 % (42.0-52.0); HEMOGLOBIN 12.6 g/dl (14.0-18.0); LYMPHOCYTES # 2.1 10^3/ul (0.8-2.9); LYMPHOCYTES % 21.9 % (15.0-51.0); MEAN CORPUSCULAR HEMOGLOBIN 29.8 pg (29.0-33.0); MEAN CORPUSCULAR HGB CONC 33.7 g/dl (32.0-37.0); MEAN CORPUSCULAR VOLUME 88.4 fl (82.0-101.0); MEAN PLATELET VOLUME 9.8 fl (7.4-10.4); MONOCYTE # 1.1 10^3/ul (0.3-0.9); MONOCYTES % 11.1 % (0.0-11.0); NEUTROPHIL # 6.3 10^3/ul (1.6-7.5); NEUTROPHILS % 65.4 % (39.0-77.0); PLATELET COUNT 402 10^3/UL (140-415); RED BLOOD COUNT 4.23 10^6/ul (4.70-6.10); RED CELL DISTRIBUTION WIDTH 12.8 % (11.5-14.5)
[2017-08-03 08:16] LABS: WHITE BLOOD COUNT 9.6 10^3/ul (4.8-10.8)
[2017-08-03 08:32] LABS: CREATINE KINASE 154 IU/L (23-200)
[2017-08-03 08:36] LABS: ALANINE AMINOTRANSFERASE 38 IU/L (13-69); ALBUMIN 3.4 g/dl (3.3-4.9); ALBUMIN/GLOBULIN RATIO 1.17; ALKALINE PHOSPHATASE 76 IU/L (42-121); ANION GAP 17 (8-16); ASPARTATE AMINO TRANSFERASE 49 IU/L (15-46); BILIRUBIN,INDIRECT 0.5 mg/dl (0-1.1); BILIRUBIN,TOTAL 0.5 mg/dl (0.2-1.3); BLOOD UREA NITROGEN 20 mg/dl (7-20); CALCIUM 9.1 mg/dl (8.4-10.2); CARBON DIOXIDE 28 mmol/L (21-31); CHLORIDE 100 mmol/L (97-110); CREATININE 1.14 mg/dl (0.61-1.24); GLUCOSE 172 mg/dl (70-220); POTASSIUM 5.2 mmol/L (3.5-5.1); SODIUM 140 mmol/L (135-144); TOTAL PROTEIN 6.3 g/dl (6.1-8.1)
[2017-08-03] MEDS: INSULIN ASPART [NOVOLOG] 3 ML PEN SC ×3 (08:36→17:05)
[2017-08-03 08:44] LABS: CK INDEX 2.1
[2017-08-03] MEDS: LISINOPRIL 5 MG TAB PO (08:48)
[2017-08-03 08:49] LABS: CK-MB 3.17 ng/ml (0.0-2.4)
[2017-08-03] MEDS: ASPIRIN (EC) 81 MG TAB PO (08:55)
[2017-08-03] MEDS: LINAGLIPTIN 5 MG TABLET PO (08:55)
[2017-08-03 08:56] LABS: MAGNESIUM 2.1 mg/dl (1.7-2.5)
[2017-08-03 08:56] LABS: PHOSPHORUS 4.5 mg/dl (2.5-4.9)
[2017-08-03] MEDS: FAMOTIDINE 20 MG TAB PO ×2 (08:56→20:32)
[2017-08-03] MEDS: DOCUSATE SODIUM 100 MG CAP PO ×2 (08:56→20:32)
[2017-08-03] MEDS: TICAGRELOR 90 MG TABLET PO ×2 (10:30→20:35)
[2017-08-03] MEDS: ATORVASTATIN 80 MG TAB PO (20:32)
[2017-08-03] MEDS: INSULIN GLARGINE [LANtus] 3 ML PEN SC (20:36)
[2017-08-04] MEDS: ACCUCHECK AT 2AM (Patients on SS coverage) XX (02:08)
[2017-08-04] MEDS: LEVOTHYROXINE 150 MCG TAB PO (06:25)
[2017-08-04] MEDS: Insulin NOVOLOG SS MILD Algorithm (SS with meals and bedtime) SC (07:30)
[2017-08-04] MEDS: FAMOTIDINE 20 MG TAB PO (08:02)
[2017-08-04] MEDS: ASPIRIN (EC) 81 MG TAB PO (08:02)
[2017-08-04] MEDS: LINAGLIPTIN 5 MG TABLET PO (08:02)
[2017-08-04] MEDS: INSULIN ASPART [NOVOLOG] 3 ML PEN SC (08:03)
[2017-08-04] MEDS: DOCUSATE SODIUM 100 MG CAP PO (08:03)
[2017-08-04] MEDS: TICAGRELOR 90 MG TABLET PO (08:03)
[2017-08-04 08:37] LABS: ADD MAN DIFF? NO
[2017-08-04 08:41] LABS: WHITE BLOOD COUNT 7.8 10^3/ul (4.8-10.8)
[2017-08-04 08:41] LABS: BASOPHILS % 0.3 % (0.0-2.0); EOSINOPHILS # 0.1 10^3/ul (0.0-0.5); EOSINOPHILS % 1.2 % (0.0-7.0); HEMATOCRIT 36.9 % (42.0-52.0); HEMOGLOBIN 12.7 g/dl (14.0-18.0); LYMPHOCYTES # 1.5 10^3/ul (0.8-2.9); LYMPHOCYTES % 18.9 % (15.0-51.0); MEAN CORPUSCULAR HEMOGLOBIN 29.9 pg (29.0-33.0); MEAN CORPUSCULAR HGB CONC 34.4 g/dl (32.0-37.0); MEAN CORPUSCULAR VOLUME 86.8 fl (82.0-101.0); MEAN PLATELET VOLUME 9.8 fl (7.4-10.4); MONOCYTE # 0.9 10^3/ul (0.3-0.9); MONOCYTES % 11.3 % (0.0-11.0); NEUTROPHIL # 5.3 10^3/ul (1.6-7.5); PLATELET COUNT 402 10^3/UL (140-415); RED BLOOD COUNT 4.25 10^6/ul (4.70-6.10); RED CELL DISTRIBUTION WIDTH 12.7 % (11.5-14.5)
[2017-08-04 08:59] LABS: PHOSPHORUS 4.2 mg/dl (2.5-4.9)
[2017-08-04 08:59] LABS: MAGNESIUM 1.9 mg/dl (1.7-2.5)
[2017-08-04 09:01] LABS: ANION GAP 17 (8-16); BLOOD UREA NITROGEN 15 mg/dl (7-20); CALCIUM 9.2 mg/dl (8.4-10.2); CARBON DIOXIDE 26 mmol/L (21-31); CHLORIDE 101 mmol/L (97-110); GLUCOSE 146 mg/dl (70-220); POTASSIUM 4.6 mmol/L (3.5-5.1); SODIUM 139 mmol/L (135-144)
== END 2017-08-04 10:22 | disposition home or self-care (01) | DRG 246 ==
LOC: MS4 08-03 03:45 → E/R 04:19 → TEL 08-01 10:00 → MS3 05:46 → ICU 08-01 16:45 → TEL 18:24
PROC: 02703DZ Dilation of Coronary Artery, One Artery with Intraluminal Device, Percutaneous Approach (ICD-10-PCS; principal; 2017-08-01 08:50)
PROC: 027034Z Dilation of Coronary Artery, One Artery with Drug-eluting Intraluminal Device, Percutaneous Approach (ICD-10-PCS; 2017-08-01 08:50)
PROC: 4A023N7 Measurement of Cardiac Sampling and Pressure, Left Heart, Percutaneous Approach (ICD-10-PCS; 2017-08-01 08:50)
PROC: B211YZZ Fluoroscopy of Multiple Coronary Arteries using Other Contrast (ICD-10-PCS; 2017-08-01 08:50)
DX: T82.855A Stenosis of coronary artery stent, initial encounter (principal); I21.4 Non-ST elevation (NSTEMI) myocardial infarction; E11.9 Type 2 diabetes mellitus without complications; I10 Essential (primary) hypertension; E78.5 Hyperlipidemia, unspecified; E03.9 Hypothyroidism, unspecified; I25.10 Atherosclerotic heart disease of native coronary artery without angina pectoris; Z95.5 Presence of coronary angioplasty implant and graft; Z95.820 Peripheral vascular angioplasty status with implants and grafts; Z79.84 Long term (current) use of oral hypoglycemic drugs; Z79.82 Long term (current) use of aspirin; Z79.02 Long term (current) use of antithrombotics/antiplatelets
CPT/HCPCS: 36415; 71045; 80048; 80053; 80061; 80076; 82550; 82553; 82962; 83036; 83690; 83735; 83880; 84100; 84439; 84443; 84484; 85025; 85610; 85730; 87081; 92928; 93005; 93308; 93458; 96361; 96374; 96375; 99285-25